=== PATIENT | male | born 1955 | race Caucasian/White ===

== ENCOUNTER 2023-01-14 09:58 | Emergency (ER) | payer MEDICARE, MEDICAID ==
[2023-01-14] MEDS ORDERED: Lidocaine 1% PF 5 ML VIAL ONE (10:08)
== END 2023-01-14 10:55 | disposition home or self-care (01) ==
LOC: BURERS 09:58
DX: S66.323A Laceration of extensor muscle, fascia and tendon of left middle finger at wrist and hand level, initial encounter (principal); S61.211A Laceration without foreign body of left index finger without damage to nail, initial encounter; I10 Essential (primary) hypertension; F17.210 Nicotine dependence, cigarettes, uncomplicated; W26.9XXA Contact with unspecified sharp object(s), initial encounter
CPT/HCPCS: 12001; 99282